=== PATIENT | female | born 1955 | race Caucasian/White ===

== ENCOUNTER 2016-11-07 11:46 | Inpatient (IN) | payer MEDICAID ==
[~2016-11-07] VITALS: Ht 165.1 cm; Wt 72.6 kg
[2016-11-07] MEDS ORDERED: SODIUM CHLORIDE 0.9% 1,000 ML IV ONE (12:50)
[2016-11-07 13:05] LABS: Basophils # (auto) 0 uL; Basophils % (auto) 0.4 % (0.0-2.0); Eosinophils # (auto) 0 uL; Eosinophils % (auto) 0.3 % (0.0-7.0); Hematocrit 43.7 % (36.0-46.0); Hemoglobin 14.9 g/dL (12.2-16.2); Lymphocytes # (auto) 1.2 uL; Lymphocytes % (auto) 17.1 % (10.0-50.0); Mean Corpuscular Hemoglobin 33.9 pg (28.0-32.0); Mean Corpuscular Hgb Conc. 34.2 g/dL (32.0-36.0); Mean Corpuscular Volume 99.1 fL (80.0-100.0); Mean Platelet Volume 7.5 fL (7.4-10.4); Monocytes # (auto) 0.5 uL; Monocytes % (auto) 6.5 % (0.0-12.0); Neutrophils # (auto) 5.5 uL; Neutrophils % (auto) 75.7 % (37.0-80.0); Platelet Count (auto) 327 10^3/uL (140-450); Red Cell Distribution Width 14.3 % (11.6-16.0); White Blood Cell 7.2 10^3/uL (4.4-10.8)
[2016-11-07 13:25] LABS: Partial Thromboplastin Time 25.8 sec (22.64-33.71); Prothrombin Time 9.5 sec (9.37-12.3)
[2016-11-07 13:29] LABS: Albumin 4.1 g/dL (3.4-5.0); Alkaline Phosphatase 81 U/L (45-117); Anion Gap 13 (5-15); Aspartate Aminotransferase 38 U/L (15-37); Bilirubin, Total 0.7 mg/dL (0.2-1.0); Blood Urea Nitrogen 18 mg/dL (7-18); Calcium 9.8 mg/dL (8.5-10.1); Carbon Dioxide 17 mmol/L (21-32); Chloride 111 mmol/L (98-107); GFR African American 131 mL/min; GFR Non-African American 108 mL/min; Glucose 134 mg/dL (74-106); Potassium 3.5 mmol/L (3.5-5.1); Sodium 141 mmol/L (136-145)
[2016-11-07 13:32] LABS: B-Type Natriuretic Peptide 65.13 pg/mL (0-100)
[2016-11-07 13:33] LABS: Temperature: 23.1 C (20.0-25.0)
[2016-11-07 13:57] LABS: INR 0.88 (0.9-1.15)
[2016-11-07] MEDS ORDERED: TEMAZEPAM 15 MG CAP PO PRN (14:30)
[2016-11-07] MEDS ORDERED: DEXTROSE (50%) 50ML SYRG IV PRN (14:30)
[2016-11-07] MEDS ORDERED: LACTULOSE 20Gm/30ML SOLN PO PRN (14:30)
[2016-11-07] MEDS ORDERED: NITROGLYCERIN 0.4 MG SL TAB SL PRN (14:30)
[2016-11-07] MEDS ORDERED: LORazepam 0.5 MG TAB PO PRN (14:30)
[2016-11-07] MEDS ORDERED: NALBUPHINE HCL 10 MG/1ml INJECTION IV ONE (14:30)
[2016-11-07] MEDS ORDERED: ONDANSETRON HCL 4 MG/2 ML VIAL IV ONE (14:30)
[2016-11-07] MEDS ORDERED: MORPHINE SULF INJ 2 MG/ML SYRINGE 1ML IV PRN ×2 (14:30)
[2016-11-07] MEDS ORDERED: ACETAMINOPHEN 500 MG TAB PO PRN (14:30)
[2016-11-07 15:04] LABS: Temperature: 23.9 C (20.0-25.0)
[2016-11-07] MEDS ORDERED: OMEP20CA5 PO (16:19)
[2016-11-07] MEDS ORDERED: SIMV-13 PO (16:19)
[2016-11-07] MEDS ORDERED: ALEN70TA55 PO (16:19)
[2016-11-07] MEDS ORDERED: PERCOT PO (16:19)
[2016-11-07] MEDS ORDERED: PROM25TA5 OR (16:19)
[2016-11-07] MEDS ORDERED: LORA-622 PO (16:19)
[2016-11-07] MEDS ORDERED: NYSTOIN10 EX ×2 (16:19)
[2016-11-07] MEDS ORDERED: IBUP800T24 PO (16:19)
[2016-11-07] MEDS ORDERED: LACT10SO PO (16:19)
[2016-11-07] MEDS ORDERED: LISI-646 PO (16:19)
[2016-11-07] MEDS ORDERED: MORP60TA25 PO (16:19)
[2016-11-07] MEDS ORDERED: GABA300C8 PO (16:19)
[2016-11-07] MEDS ORDERED: CARI350T21 PO (16:19)
[2016-11-07] MEDS ORDERED: ALPR0.5T7 PO (16:19)
[2016-11-07] MEDS ORDERED: TRAM50TA2 PO (16:19)
[2016-11-07] MEDS ORDERED: ZOLP10TA6 PO (16:26)
[2016-11-07] MEDS: SODIUM CHLORIDE 0.9% 1,000 ML IV SCH (16:40)
[2016-11-07] MEDS: ACCU-CHEK COMFORT CURVE STRIP VI SCH (18:37)
[2016-11-07] MEDS: PROCHLORPERAZINE EDISYLATE 5 MG/ML 2ML VIAL IV PRN (18:37)
[2016-11-07] MEDS ORDERED: ZOLPIDEM TARTRATE 5 MG TAB PO PRN (19:00)
[2016-11-07 20:00] VITALS: BP 143/76
[2016-11-07] MEDS ORDERED: fentaNYL 50MCG/HR 50 MCG/HR PAT TD SCH (20:00)
[2016-11-07 21:31] VITALS: BP 143/76
[2016-11-07] MEDS: ALPRAZolam 0.5 MG TAB PO SCH (21:57)
[2016-11-07] MEDS: CARISOPRODOL 350 MG TAB PO SCH (21:57)
[2016-11-07] MEDS: GABAPENTIN 300 MG CAP PO SCH (21:57)
[2016-11-07] MEDS ORDERED: ATORVASTATIN 20 MG TAB PO SCH (22:00)
[2016-11-08] MEDS: SODIUM CHLORIDE 0.9% 1,000 ML IV SCH ×2 (03:00→15:30)
[2016-11-08 04:37] VITALS: BP 110/61
[2016-11-08] MEDS: ALPRAZolam 0.5 MG TAB PO SCH ×2 (05:35→14:45)
[2016-11-08] MEDS: GABAPENTIN 300 MG CAP PO SCH ×2 (05:35→14:46)
[2016-11-08] MEDS: HYDROcodone-ACET 5/325MG TAB PO PRN ×2 (05:36→11:52)
[2016-11-08] MEDS: ACCU-CHEK COMFORT CURVE STRIP VI SCH ×4 (05:36→17:51)
[2016-11-08] MEDS: PROCHLORPERAZINE EDISYLATE 5 MG/ML 2ML VIAL IV PRN (07:12)
[2016-11-08 08:00] VITALS: BP 104/61
[2016-11-08] MEDS ORDERED: ASPirin 81 mg TAB PO SCH (10:00)
[2016-11-08] MEDS ORDERED: LISINOPRIL 10 MG TAB PO SCH (10:00)
[2016-11-08] MEDS ORDERED: PANTOPRAZOLE 40 MG TAB PO SCH (10:00)
[2016-11-08] MEDS ORDERED: ENOXAPARIN SOD 40 MG/0.4 ML SYRINGE SC SCH (10:00)
[2016-11-08] MEDS ORDERED: PATIENTS OWN MEDICATION (Simvastatin 40 MG) PO SCH ×2 (10:00)
[2016-11-08] MEDS: CARISOPRODOL 350 MG TAB PO SCH (11:51)
[2016-11-08 13:00] VITALS: BP 141/96
[2016-11-08] MEDS ORDERED: LORazepam 2MG/ML-1ML VIAL IV ONE (14:30)
[2016-11-08] MEDS ORDERED: ASPI-266 PO (14:58)
[2016-11-08 16:53] LABS: Cholesterol 256 mg/dL (< 200); HDL Cholesterol 60 mg/dL (40-59); LDL Cholesterol 173 mg/dL (< 100); Triglycerides 186 mg/dL (< 150)
[2016-11-08 17:00] VITALS: BP 138/86
[2016-11-08 17:01] LABS: Urine Bilirubin Negative (Negative); Urine Blood Negative /uL (Negative); Urine Color Yellow (Yellow); Urine Glucose Normal (Normal); Urine Ketone Negative (Negative); Urine Nitrite Negative (Negative); Urine RBC 3 /hpf (0 - 4); Urine Squamous Epithelial Cell FEW /hpf (<5); Urine pH 6.5 (5.0-8.0)
[2016-11-08 18:35] VITALS: BP 138/86
== END 2016-11-08 18:58 | disposition home or self-care (01) | DRG 45 ==
LOC: EDBD 11:46 → ER 11:47 → TELE 11:48 → TELE-CENTR 20:00
PROVIDERS: ADMIT Internal Medicine; ATTEND Internal Medicine
DX: I63.9 Cerebral infarction, unspecified (principal); G62.9 Polyneuropathy, unspecified; I10 Essential (primary) hypertension; E78.5 Hyperlipidemia, unspecified; G89.4 Chronic pain syndrome; M19.90 Unspecified osteoarthritis, unspecified site; H53.8 Other visual disturbances; R73.9 Hyperglycemia, unspecified; R00.1 Bradycardia, unspecified; G43.909 Migraine, unspecified, not intractable, without status migrainosus; K21.9 Gastro-esophageal reflux disease without esophagitis; G47.00 Insomnia, unspecified; Z85.89 Personal history of malignant neoplasm of other organs and systems; Z88.0 Allergy status to penicillin; Z82.49 Family history of ischemic heart disease and other diseases of the circulatory system; Z85.41 Personal history of malignant neoplasm of cervix uteri; Z87.891 Personal history of nicotine dependence; Z82.3 Family history of stroke; Z91.018 Allergy to other foods; Z91.09 Other allergy status, other than to drugs and biological substances; I69.928 Other speech and language deficits following unspecified cerebrovascular disease; I69.398 Other sequelae of cerebral infarction
CPT/HCPCS: 36415; 70450; 70551; 71010; 80053; 80061; 80307; 81001; 82550; 82607; 82746; 82962; 83036; 83605; 83880; 84443; 84484; 85025; 85610; 85652; 85730; 87040; 93306; 93886; 96361; 96374; 96375; J2405

== ENCOUNTER 2021-03-15 07:22 | Emergency (ER) | payer MEDICAID ==
[~2021-03-15] VITALS: Ht 162.6 cm; Wt 52.6 kg
[~2021-03-15 07:22] MED LIST: ALEN70TA74 PO; ALPR0.5T7 PO; FENT25DI2 TD; GABA300C10 PO; IBUP800T27 PO; LIDO4PAD8 EX; LISI20TA28 PO; LORA-622 PO; METH500T22 PO; ONDA-144 PO; PERCOT PO; PRAM0.252 PO; SIMV-13 PO; SUCR1TAB PO; ZOLP10TA6 PO
[2021-03-15 07:32] VITALS: BP 98/60
[2021-03-15] MEDS: cefTRIAXone SOD 1,000 MG VL IM ONE (09:16)
== END 2021-03-15 10:09 | disposition home or self-care (01) ==
LOC: ER 07:22
DX: J02.9 Acute pharyngitis, unspecified (principal); H60.91 Unspecified otitis externa, right ear; I10 Essential (primary) hypertension; E78.5 Hyperlipidemia, unspecified; Z20.822 Contact with and (suspected) exposure to COVID-19; Z86.73 Personal history of transient ischemic attack (TIA), and cerebral infarction without residual deficits; Z90.89 Acquired absence of other organs; Z87.891 Personal history of nicotine dependence; Z79.1 Long term (current) use of non-steroidal anti-inflammatories (NSAID); Z79.899 Other long term (current) drug therapy; Z88.0 Allergy status to penicillin; Z88.8 Allergy status to other drugs, medicaments and biological substances
CPT/HCPCS: 36415; 87426; 96372; 99283; J0696